=== PATIENT | female | born 1975 | race African-American/Black ===

== ENCOUNTER 2020-01-10 21:11 | Emergency (ER) | payer MEDICAID ==
[~2020-01-10] VITALS: Ht 162.6 cm; Wt 113.4 kg
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
--- NOTE | 2020-01-10 21:20 | NUR ---
ED Nurse Note: ERMD at bedside
[2020-01-10] MEDS ORDERED: Methocarbamol 750mg tab ORAL ONE (21:45)
[2020-01-10] MEDS ORDERED: Ketorolac 30mg Inj IM ONE (21:45)
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
[2020-01-10] MEDS ORDERED: IBUPROFEN600 M1 ORAL (22:07)
[2020-01-10] MEDS ORDERED: ROBAXIN-500MG ORAL (22:07)
[2020-01-10] MEDS ORDERED: LIDODERM700 M1 TOPIC (22:07)
--- NOTE | 2020-01-10 22:15 | NUR ---
ED Nurse Note: CT scan done
[2020-01-10 22:30] VITALS: BP 157/87
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
[2020-01-10 23:40] VITALS: BP 138/78
--- NOTE | 2020-01-10 23:40 | NUR ---
ER DISCHARGE NOTE: Patient is cleared to be discharged per ERMD, pt is aox4, on room air, with stable vital signs. pt was given dc and prescription instructions, pt was able to verbalize understanding, pt id band removed. pt is able to ambulate with steady gait. pt took all belongings.
== END 2020-01-10 23:30 | disposition home or self-care (01) ==
LOC: EMR 21:25
DX: S16.1XXA Strain of muscle, fascia and tendon at neck level, initial encounter (principal); S39.012A Strain of muscle, fascia and tendon of lower back, initial encounter; V43.62XA Car passenger injured in collision with other type car in traffic accident, initial encounter; Y92.9 Unspecified place or not applicable
CPT/HCPCS: 72125; 72131; 96372; J1885; Z7502; 99284